=== PATIENT | female | born 1970 | race Caucasian/White ===

== ENCOUNTER → 2018-02-08 | Outpatient (CLI) | payer BC ==
[~2018-02-08] MED LIST: Androgel2.5 GM; Augmentin 500-1 EACH PO; CEPH500 PO; CHOL10002; CIPR500 PO; CLON1 PO; Cipro500 MG PO; Cytomel5 MCG PO; DHEA; DHEA PO; ESOM20 PO; Flagyl500 MG PO; HYDHCL25 PO; HYDMOR2 PO; HYDRA25 PO; LEVOTHYROXINE 175 MCG PO; LEVSOD125 PO; LIOT5; METR500 PO; MULVITMIND PO; Norco 5-325 Ta1 EACH PO; ONDA4ODT MM; OXYACE5T PO; PARO10 PO; PARO20 PO; PHENTERMINE; PRED20 PO; PROM25 PO; STRESS FORMULA PO; STRESS FORMULA1 EAC2; SULF500A PO; Synthroid100 MCG PO; Zofran Odt4 MG SL; [UNRECOGNIZED DRUG - OTHER]
[2018-02-08 13:52] LABS: BASOPHILS ABSOLUTE AUTO 0.03 K/mm3 (0.00-0.23); BASOPHILS PERCENT AUTO 0 % (0-2); EOSINOPHILS ABSOLUTE AUTO 0.21 K/mm3 (0.00-0.68); EOSINOPHILS PERCENT AUTO 2 % (0-6); Hemoglobin 12.8 g/dL (11.5-16.0); IMMATURE GRAN ABSOLUTE AUTO 0.05 K/mm3 (0.00-0.10); IMMATURE GRAN PERCENT AUTO 0 % (0-1); LYMPHOCYTES ABSOLUTE AUTO 2.14 K/mm3 (0.84-5.20); LYMPHOCYTES PERCENT AUTO 17 % (21-46); MONOCYTES ABSOLUTE AUTO 0.69 K/mm3 (0.16-1.47); MONOCYTES PERCENT AUTO 6 % (4-13); Mean Corpuscular HGB 30.5 pg (26.0-34.0); Mean Corpuscular HGB Conc 33.7 g/dL (31.5-36.5); Mean Corpuscular Volume 91 fL (80-100); Mean Platelet Volume 10.9 fL (9.1-12.4); NEUTROPHILS ABSOLUTE AUTO 9.36 K/mm3 (1.96-9.15); NEUTROPHILS PERCENT AUTO 75 % (41-73); Platelet Count 234 K/mm3 (150-400); RDW Coefficient Variation 13.2 % (11.7-14.2); RDW Standard Deviation 43.6 fL (35.1-46.3); Red Blood Cell Count 4.19 M/mm3 (3.80-5.20); White Blood Cell Count 12.48 K/mm3 (4.00-11.30)
[2018-02-08 14:11] LABS: Alanine Aminotransfer (ALT/SGP 49 U/L (12-78); Albumin, Blood 3.2 g/dL (3.4-5.0); Albumin/Globulin Ratio 0.8 (0.8-1.8); Alk Phos 98 U/L (50-136); Anion Gap 8 mmol/L (6-16); Aspartate Aminotrans (AST/SGOT 31 U/L (12-37); Bilirubin, Total 0.7 mg/dL (0.1-1.0); Blood Urea Nitrogen 9 mg/dL (8-24); Bun/Creatinine Ratio 18.9 (12.0-20.0); CO2, Blood 25 mmol/L (21-32); Calcium, Blood 8.5 mg/dL (8.5-10.1); Chloride, Blood 108 mmol/L (98-108); Creatinine, Blood 0.48 mg/dL (0.40-1.00); Glomerular Filtration Rate >60 (60-); Glucose, Blood 117 mg/dL (70-99); Potassium, Blood 3.4 mmol/L (3.5-5.5); Sodium, Blood 141 mmol/L (136-145); Total Protein, Blood 7.2 g/dL (6.4-8.2)
== END | disposition home or self-care (01) ==
LOC: LAB SHORT 13:41 → LAB 13:41
PROVIDERS: Nurse Practitioner
DX: R10.84 Generalized abdominal pain (principal)
CPT/HCPCS: 80053; 83690; 85025; 87086

== ENCOUNTER 2018-02-14 11:38 | Emergency (ER) | payer BC ==
[~2018-02-14] VITALS: Ht 167.6 cm; Wt 98.9 kg
[~2018-02-14 11:38] MED LIST changes: -Androgel2.5 GM; -Augmentin 500-1 EACH PO; -CEPH500 PO; -CHOL10002; -Cipro500 MG PO; -Cytomel5 MCG PO; -DHEA; -DHEA PO; -ESOM20 PO; -Flagyl500 MG PO; -LIOT5; -Norco 5-325 Ta1 EACH PO; -ONDA4ODT MM; -PARO10 PO; -PRED20 PO; -STRESS FORMULA PO; -STRESS FORMULA1 EAC2; -SULF500A PO; -Synthroid100 MCG PO; -Zofran Odt4 MG SL
[2018-02-14 13:42] LABS: BASOPHILS ABSOLUTE AUTO 0.04 K/mm3 (0.00-0.23); BASOPHILS PERCENT AUTO 0 % (0-2); EOSINOPHILS ABSOLUTE AUTO 0.23 K/mm3 (0.00-0.68); EOSINOPHILS PERCENT AUTO 2 % (0-6); Hematocrit 41.6 % (33.0-51.0); Hemoglobin 13.8 g/dL (11.5-16.0); IMMATURE GRAN ABSOLUTE AUTO 0.03 K/mm3 (0.00-0.10); IMMATURE GRAN PERCENT AUTO 0 % (0-1); LYMPHOCYTES PERCENT AUTO 23 % (21-46); MONOCYTES ABSOLUTE AUTO 0.67 K/mm3 (0.16-1.47); MONOCYTES PERCENT AUTO 5 % (4-13); Mean Corpuscular HGB 30.2 pg (26.0-34.0); Mean Corpuscular HGB Conc 33.2 g/dL (31.5-36.5); Mean Corpuscular Volume 91 fL (80-100); Mean Platelet Volume 9.8 fL (9.1-12.4); NEUTROPHILS ABSOLUTE AUTO 8.63 K/mm3 (1.96-9.15); NEUTROPHILS PERCENT AUTO 70 % (41-73); Platelet Count 298 K/mm3 (150-400); RDW Coefficient Variation 12.9 % (11.7-14.2); RDW Standard Deviation 42.9 fL (35.1-46.3); Red Blood Cell Count 4.57 M/mm3 (3.80-5.20)
[2018-02-14 13:59] LABS: Alanine Aminotransfer (ALT/SGP 41 U/L (12-78); Albumin, Blood 3.5 g/dL (3.4-5.0); Albumin/Globulin Ratio 0.8 (0.8-1.8); Alk Phos 106 U/L (50-136); Anion Gap 10 mmol/L (6-16); Aspartate Aminotrans (AST/SGOT 23 U/L (12-37); Bilirubin, Total 0.3 mg/dL (0.1-1.0); Blood Urea Nitrogen 12 mg/dL (8-24); Bun/Creatinine Ratio 24.4 (12.0-20.0); CO2, Blood 22 mmol/L (21-32); Calcium, Blood 8.9 mg/dL (8.5-10.1); Chloride, Blood 109 mmol/L (98-108); Creatinine, Blood 0.49 mg/dL (0.40-1.00); Globulin, Blood 4.2 g/dL (2.2-4.0); Glomerular Filtration Rate >60 (60-); Glucose, Blood 78 mg/dL (70-99); Potassium, Blood 3.3 mmol/L (3.5-5.5); Sodium, Blood 141 mmol/L (136-145); Total Protein, Blood 7.7 g/dL (6.4-8.2)
[2018-02-14] MEDS ORDERED: PARO20 PO (15:09)
[2018-02-14] MEDS ORDERED: CEPH500 PO (15:09)
[2018-02-14] MEDS ORDERED: Cipro500 MG PO (16:38)
[2018-02-14] MEDS ORDERED: ONDA4ODT MM (16:38)
[2018-02-14] MEDS ORDERED: Flagyl500 MG PO (16:38)
[2018-02-14] MEDS ORDERED: Norco 5-325 Ta1 EACH PO (16:38)
[2018-02-14 17:26] LABS: Source, Urine Clean Catch
[2018-02-14 17:31] LABS: Bilirubin, Urine Neg (Neg); Blood, Urine 1+ (Neg); Glucose Qualitative, Urine Neg (Neg); Ketones, Urine 3+ (Neg); Leukocyte Esterase, Urine Neg (Neg); Nitrite, Urine Neg (Neg); Protein, Urine 1+ (Neg); Specific Gravity, Urine 1.025 (1.003-1.022); Urobilinogen, Urine NORM (Normal)
[2018-02-14 17:41] LABS: Appearance, Urine Clear (Clear); Color, Urine Yellow (P-Yellow); Mucus Light (0-Heavy); White Blood Cells, Urine 0-2 /hpf (0-5)
[2018-02-14 17:42] LABS: Bacteria Few /hpf; Squamous Epithelial Cells Few /hpf (Few)
[2018-09-10] MEDS ORDERED: LIOT5 (09:34)
[2018-09-10] MEDS ORDERED: DHEA (09:35)
[2018-09-10] MEDS ORDERED: STRESS FORMULA1 EAC2 (09:35)
[2018-09-10] MEDS ORDERED: CHOL10002 (09:36)
[2018-09-10] MEDS ORDERED: Androgel2.5 GM (09:37)
[2018-09-15] MEDS ORDERED: ESOM20 PO (14:15)
[2018-09-16] MEDS ORDERED: Cytomel5 MCG PO (06:25)
[2018-09-16] MEDS ORDERED: DHEA PO (06:26)
[2018-09-16] MEDS ORDERED: STRESS FORMULA PO (06:28)
== END 2018-02-14 18:00 | disposition home or self-care (01) ==
LOC: ER 11:38
PROVIDERS: Emergency Medicine; Physician Assistant
DX: K57.32 Diverticulitis of large intestine without perforation or abscess without bleeding (principal); K80.20 Calculus of gallbladder without cholecystitis without obstruction; F17.210 Nicotine dependence, cigarettes, uncomplicated; Z88.1 Allergy status to other antibiotic agents; Z88.5 Allergy status to narcotic agent; Z79.899 Other long term (current) drug therapy
CPT/HCPCS: 36415; 74176; 80053; 81000; 81001; 83690; 85025; 96361; 96374; 99284; J2405; J7030

== ENCOUNTER 2018-05-22 06:18 | Emergency (ER) | payer BC ==
[~2018-05-22] VITALS: Ht 167.6 cm; Wt 95.2 kg
[~2018-05-22 06:18] MED LIST changes: +CEPH500 PO; +Cipro500 MG PO; +Flagyl500 MG PO; +Norco 5-325 Ta1 EACH PO; +ONDA4ODT MM
[2018-05-22 08:09] LABS: BASOPHILS ABSOLUTE AUTO 0.06 K/mm3 (0.00-0.23); BASOPHILS PERCENT AUTO 0 % (0-2); EOSINOPHILS ABSOLUTE AUTO 0.07 K/mm3 (0.00-0.68); EOSINOPHILS PERCENT AUTO 1 % (0-6); Hematocrit 43.9 % (33.0-51.0); Hemoglobin 14.9 g/dL (11.5-16.0); IMMATURE GRAN ABSOLUTE AUTO 0.06 K/mm3 (0.00-0.10); IMMATURE GRAN PERCENT AUTO 0 % (0-1); LYMPHOCYTES ABSOLUTE AUTO 1.31 K/mm3 (0.84-5.20); LYMPHOCYTES PERCENT AUTO 9 % (21-46); MONOCYTES ABSOLUTE AUTO 0.65 K/mm3 (0.16-1.47); MONOCYTES PERCENT AUTO 4 % (4-13); Mean Corpuscular HGB 30.6 pg (26.0-34.0); Mean Corpuscular HGB Conc 33.9 g/dL (31.5-36.5); Mean Corpuscular Volume 90 fL (80-100); Mean Platelet Volume 10.3 fL (9.1-12.4); NEUTROPHILS PERCENT AUTO 86 % (41-73); Platelet Count 262 K/mm3 (150-400); RDW Coefficient Variation 13.9 % (11.7-14.2); RDW Standard Deviation 45.9 fL (35.1-46.3); Red Blood Cell Count 4.87 M/mm3 (3.80-5.20); White Blood Cell Count 15.25 K/mm3 (4.00-11.30)
[2018-05-22 08:33] LABS: Alanine Aminotransfer (ALT/SGP 26 U/L (12-78); Albumin/Globulin Ratio 1.1 (0.8-1.8); Alk Phos 77 U/L (50-136); Anion Gap 9 mmol/L (6-16); Aspartate Aminotrans (AST/SGOT 20 U/L (12-37); Bilirubin, Total 0.6 mg/dL (0.1-1.0); Blood Urea Nitrogen 15 mg/dL (8-24); Bun/Creatinine Ratio 23.5 (12.0-20.0); CO2, Blood 22 mmol/L (21-32); Calcium, Blood 8.8 mg/dL (8.5-10.1); Chloride, Blood 110 mmol/L (98-108); Creatinine, Blood 0.64 mg/dL (0.40-1.00); Globulin, Blood 3.7 g/dL (2.2-4.0); Glomerular Filtration Rate >60 (60-); Glucose, Blood 101 mg/dL (70-99); Potassium, Blood 3.8 mmol/L (3.5-5.5); Sodium, Blood 141 mmol/L (136-145); Total Protein, Blood 7.7 g/dL (6.4-8.2)
[2018-05-22] MEDS ORDERED: Augmentin 500-1 EACH PO (08:45)
[2018-05-22] MEDS ORDERED: Synthroid100 MCG PO (08:45)
[2018-05-22] MEDS ORDERED: Zofran Odt4 MG SL (08:45)
[2018-05-22] MEDS ORDERED: Norco 5-325 Ta1 EACH PO (08:45)
[2018-05-22 08:53] LABS: Free Thyroxine 0.63 ng/dL (0.70-1.60); Thyroid Stimulating Hormone 28.3 uIU/mL (0.360-4.800); Triiodothyronine, Free 1.27 pg/mL (2.18-3.98)
== END 2018-05-22 09:00 | disposition home or self-care (01) ==
LOC: ER 06:18
PROVIDERS: Emergency Medicine
DX: A09 Infectious gastroenteritis and colitis, unspecified (principal); Z88.1 Allergy status to other antibiotic agents; Z88.5 Allergy status to narcotic agent; Z88.8 Allergy status to other drugs, medicaments and biological substances; Z79.899 Other long term (current) drug therapy; F17.210 Nicotine dependence, cigarettes, uncomplicated
CPT/HCPCS: 36415; 74176; 80053; 84439; 84443; 84481; 85025; 96374; 96375; 99284; J2405; J3010; J7030

== ENCOUNTER 2018-08-04 18:41 | Emergency (ER) | payer BC ==
[~2018-08-04] VITALS: Ht 167.6 cm; Wt 92.5 kg
[~2018-08-04 18:41] MED LIST changes: +Augmentin 500-1 EACH PO; +Synthroid100 MCG PO; +Zofran Odt4 MG SL
[2018-08-04 19:09] LABS: BASOPHILS ABSOLUTE AUTO 0.06 K/mm3 (0.00-0.23); BASOPHILS PERCENT AUTO 1 % (0-2); EOSINOPHILS ABSOLUTE AUTO 0.24 K/mm3 (0.00-0.68); EOSINOPHILS PERCENT AUTO 2 % (0-6); Hematocrit 42.7 % (33.0-51.0); Hemoglobin 14.7 g/dL (11.5-16.0); IMMATURE GRAN ABSOLUTE AUTO 0.04 K/mm3 (0.00-0.10); IMMATURE GRAN PERCENT AUTO 0 % (0-1); LYMPHOCYTES ABSOLUTE AUTO 3.17 K/mm3 (0.84-5.20); LYMPHOCYTES PERCENT AUTO 24 % (21-46); MONOCYTES ABSOLUTE AUTO 0.69 K/mm3 (0.16-1.47); MONOCYTES PERCENT AUTO 5 % (4-13); Mean Corpuscular HGB 31.3 pg (26.0-34.0); Mean Corpuscular HGB Conc 34.4 g/dL (31.5-36.5); Mean Corpuscular Volume 91 fL (80-100); Mean Platelet Volume 10.3 fL (9.1-12.4); NEUTROPHILS ABSOLUTE AUTO 9.04 K/mm3 (1.96-9.15); NEUTROPHILS PERCENT AUTO 68 % (41-73); Platelet Count 215 K/mm3 (150-400); RDW Coefficient Variation 13.2 % (11.7-14.2); White Blood Cell Count 13.24 K/mm3 (4.00-11.30)
[2018-08-04 19:26] LABS: Alanine Aminotransfer (ALT/SGP 28 U/L (12-78); Albumin, Blood 3.4 g/dL (3.4-5.0); Albumin/Globulin Ratio 0.8 (0.8-1.8); Alk Phos 81 U/L (50-136); Anion Gap 9 mmol/L (6-16); Aspartate Aminotrans (AST/SGOT 20 U/L (12-37); Bilirubin, Total 0.4 mg/dL (0.1-1.0); Blood Urea Nitrogen 10 mg/dL (8-24); Bun/Creatinine Ratio 13.3 (12.0-20.0); CO2, Blood 23 mmol/L (21-32); Calcium, Blood 9.1 mg/dL (8.5-10.1); Chloride, Blood 107 mmol/L (98-108); Creatinine, Blood 0.75 mg/dL (0.40-1.00); Glomerular Filtration Rate >60 (60-); Glucose, Blood 92 mg/dL (70-99); Potassium, Blood 3.8 mmol/L (3.5-5.5); Sodium, Blood 139 mmol/L (136-145); Total Protein, Blood 7.4 g/dL (6.4-8.2)
[2018-08-04] MEDS ORDERED: PARO10 PO (20:08)
[2018-08-04 20:59] LABS: Source, Urine Clean Catch
[2018-08-04 21:02] LABS: Bilirubin, Urine Neg (Neg); Blood, Urine 1+ (Neg); Glucose Qualitative, Urine Neg (Neg); Ketones, Urine Neg (Neg); Leukocyte Esterase, Urine Neg (Neg); Nitrite, Urine Neg (Neg); Protein, Urine Neg (Neg); Specific Gravity, Urine 1.025 (1.003-1.022); Urobilinogen, Urine NORM (Normal)
[2018-08-04 21:07] LABS: Appearance, Urine Clear (Clear); Color, Urine Yellow (P-Yellow)
[2018-08-04 21:08] LABS: White Blood Cells, Urine 0-2 /hpf (0-5)
[2018-08-04 21:09] LABS: Bacteria Few /hpf; Mucus Light (0-Heavy); Squamous Epithelial Cells Few /hpf (Few)
[2018-08-04] MEDS ORDERED: PRED20 PO (21:47)
[2018-08-04] MEDS ORDERED: SULF500A PO (21:47)
== END 2018-08-04 22:03 | disposition home or self-care (01) ==
LOC: ER 18:41
PROVIDERS: Emergency Medicine
DX: K80.20 Calculus of gallbladder without cholecystitis without obstruction (principal); R19.7 Diarrhea, unspecified; F17.210 Nicotine dependence, cigarettes, uncomplicated; Z88.1 Allergy status to other antibiotic agents; Z88.5 Allergy status to narcotic agent; Z79.899 Other long term (current) drug therapy
CPT/HCPCS: 36415; 80053; 81001; 83690; 85025; 99284

== ENCOUNTER 2020-05-10 15:11 | Emergency (ER) | payer BC ==
[~2020-05-10] VITALS: Ht 167.6 cm; Wt 93.0 kg
[~2020-05-10 15:11] MED LIST changes: +Androgel2.5 GM; +CHOL10002; +Cytomel5 MCG PO; +DHEA; +DHEA PO; +DOCU100 PO; +ESOM20 PO; +ESTRADIOL2 MG PO; +IBU800 MG PO; +LIOT5; +Milk Of Ma400 MG/5 M PO; +PARO10 PO; +PRED20 PO; +Percocet 5-3251 EACH PO; +SENN187 PO; +STRESS FORMULA PO; +STRESS FORMULA1 EAC2; +SULF500A PO
[2020-05-10 16:45] LABS: BASOPHILS ABSOLUTE AUTO 0.04 K/mm3 (0.00-0.23); BASOPHILS PERCENT AUTO 0 % (0-2); EOSINOPHILS ABSOLUTE AUTO 0.33 K/mm3 (0.00-0.68); EOSINOPHILS PERCENT AUTO 3 % (0-6); Hematocrit 45.7 % (33.0-51.0); IMMATURE GRAN ABSOLUTE AUTO 0.06 K/mm3 (0.00-0.10); IMMATURE GRAN PERCENT AUTO 1 % (0-1); LYMPHOCYTES ABSOLUTE AUTO 2.62 K/mm3 (0.84-5.20); LYMPHOCYTES PERCENT AUTO 23 % (21-46); MONOCYTES ABSOLUTE AUTO 0.65 K/mm3 (0.16-1.47); MONOCYTES PERCENT AUTO 6 % (4-13); Mean Corpuscular HGB 30.6 pg (26.0-34.0); Mean Corpuscular HGB Conc 32.8 g/dL (31.5-36.5); Mean Corpuscular Volume 93 fL (80-100); NEUTROPHILS ABSOLUTE AUTO 7.57 K/mm3 (1.96-9.15); NEUTROPHILS PERCENT AUTO 67 % (41-73); Platelet Count 263 K/mm3 (150-400); RDW Standard Deviation 44.5 fL (35.1-46.3); White Blood Cell Count 11.27 K/mm3 (4.00-11.30)
[2020-05-10 17:15] LABS: Alanine Aminotransfer (ALT/SGP 117 U/L (12-78); Albumin, Blood 3.6 g/dL (3.4-5.0); Albumin/Globulin Ratio 0.9 (0.8-1.8); Alk Phos 165 U/L (50-136); Anion Gap 7 mmol/L (6-16); Aspartate Aminotrans (AST/SGOT 42 U/L (12-37); Bilirubin, Total 0.5 mg/dL (0.1-1.0); Blood Urea Nitrogen 8 mg/dL (8-24); Bun/Creatinine Ratio 11.5 (12.0-20.0); CO2, Blood 24 mmol/L (21-32); Calcium, Blood 9.5 mg/dL (8.5-10.1); Chloride, Blood 108 mmol/L (98-108); Creatinine, Blood 0.69 mg/dL (0.40-1.00); Globulin, Blood 4.2 g/dL (2.2-4.0); Glomerular Filtration Rate >60 (60-); Glucose, Blood 164 mg/dL (70-99); Potassium, Blood 3.4 mmol/L (3.5-5.5); Sodium, Blood 139 mmol/L (136-145); Total Protein, Blood 7.8 g/dL (6.4-8.2)
[2020-05-10 19:26] LABS: Source, Urine Clean Catch
[2020-05-10 19:30] LABS: Bilirubin, Urine Neg (Neg); Blood, Urine 1+ (Neg); Glucose Qualitative, Urine Neg (Neg); Ketones, Urine 1+ (Neg); Leukocyte Esterase, Urine Neg (Neg); Nitrite, Urine Neg (Neg); Protein, Urine Neg (Neg); Specific Gravity, Urine 1.025 (1.003-1.022); Urobilinogen, Urine 1+ (Normal)
[2020-05-10 19:38] LABS: Appearance, Urine Clear (Clear); Color, Urine Yellow (P-Yellow)
[2020-05-10 19:39] LABS: Bacteria Mod /hpf; Mucus Light (0-Heavy); Red Blood Cells, Urine 0-2 /hpf (0-2); Squamous Epithelial Cells Few /hpf (Few); White Blood Cells, Urine 0-2 /hpf (0-5)
== END 2020-05-10 19:43 | disposition home or self-care (01) ==
LOC: ER 15:11
PROVIDERS: Emergency Medicine
DX: M79.89 Other specified soft tissue disorders (principal); R74.8 Abnormal levels of other serum enzymes; F17.210 Nicotine dependence, cigarettes, uncomplicated; Z90.710 Acquired absence of both cervix and uterus; Z88.1 Allergy status to other antibiotic agents; Z88.5 Allergy status to narcotic agent; Z88.8 Allergy status to other drugs, medicaments and biological substances
CPT/HCPCS: 36415; 80053; 81001; 83690; 85025; 87086; 93971; 99284-25

== ENCOUNTER 2022-05-20 15:37 | Emergency (ER) | payer BC ==
[~2022-05-20] VITALS: Ht 167.6 cm; Wt 93.0 kg
[2022-05-20 16:05] LABS: BASOPHILS ABSOLUTE AUTO 0.03 K/mm3 (0.00-0.23); BASOPHILS PERCENT AUTO 0 % (0-2); EOSINOPHILS ABSOLUTE AUTO 0.21 K/mm3 (0.00-0.68); EOSINOPHILS PERCENT AUTO 2 % (0-6); Hematocrit 39.6 % (33.0-51.0); Hemoglobin 13.8 g/dL (11.5-16.0); IMMATURE GRAN ABSOLUTE AUTO 0.02 K/mm3 (0.00-0.10); IMMATURE GRAN PERCENT AUTO 0 % (0-1); LYMPHOCYTES ABSOLUTE AUTO 2.53 K/mm3 (0.84-5.20); LYMPHOCYTES PERCENT AUTO 25 % (21-46); MONOCYTES PERCENT AUTO 6 % (4-13); Mean Corpuscular HGB 31.4 pg (26.0-34.0); Mean Corpuscular HGB Conc 34.8 g/dL (31.5-36.5); Mean Corpuscular Volume 90 fL (80-100); Mean Platelet Volume 9.9 fL (9.1-12.4); NEUTROPHILS ABSOLUTE AUTO 6.86 K/mm3 (1.96-9.15); NEUTROPHILS PERCENT AUTO 67 % (41-73); Platelet Count 225 K/mm3 (150-400); RDW Coefficient Variation 12.1 % (11.7-14.2); RDW Standard Deviation 39.7 fL (35.1-46.3); White Blood Cell Count 10.25 K/mm3 (4.00-11.30)
[2022-05-20 16:16] LABS: Source, Urine Clean Catch
[2022-05-20 16:18] LABS: Appearance, Urine Clear (Clear); Bilirubin, Urine Neg (Neg); Blood, Urine Neg (Neg); Color, Urine Yellow (P-Yellow); Glucose Qualitative, Urine Neg (Neg); Ketones, Urine Neg (Neg); Leukocyte Esterase, Urine Neg (Neg); Nitrite, Urine Neg (Neg); Protein, Urine Neg (Neg); Urobilinogen, Urine NORM (Normal)
[2022-05-20 16:25] LABS: Albumin, Blood 3.5 g/dL (3.4-5.0); Albumin/Globulin Ratio 0.9 (0.8-1.8); Bilirubin, Total 0.4 mg/dL (0.1-1.0); Bun/Creatinine Ratio 18.2 (12.0-20.0); Calcium, Blood 9.2 mg/dL (8.5-10.1); Creatinine, Blood 0.6 mg/dL (0.40-1.00); Globulin, Blood 3.7 g/dL (2.2-4.0); Potassium, Blood 3.7 mmol/L (3.5-5.5); Total Protein, Blood 7.2 g/dL (6.4-8.2)
[2022-05-20] MEDS ORDERED: Cipro500 MG PO (17:44)
[2022-05-20] MEDS ORDERED: ONDA4ODT MM (17:44)
[2022-05-20] MEDS ORDERED: Flagyl500 MG PO (17:44)
[2022-05-20] MEDS ORDERED: Roxicodone5 MG PO (17:44)
== END 2022-05-20 18:13 | disposition home or self-care (01) ==
LOC: ER 15:37
PROVIDERS: Physician Assistant
DX: K57.32 Diverticulitis of large intestine without perforation or abscess without bleeding (principal); E03.9 Hypothyroidism, unspecified; Z88.1 Allergy status to other antibiotic agents; Z88.5 Allergy status to narcotic agent; Z79.899 Other long term (current) drug therapy
CPT/HCPCS: 36415; 74177; 80053; 81003; 83690; 85025; A9270; J1885; J2405; J7030; Q9967

== ENCOUNTER 2022-06-27 13:32 | Emergency (ER) | payer OTHER ==
[~2022-06-27] VITALS: Ht 167.6 cm; Wt 91.6 kg
[~2022-06-27 13:32] MED LIST changes: +Roxicodone5 MG PO
== END 2022-06-27 15:14 | disposition home or self-care (01) ==
LOC: ER 13:32
DX: S80.02XA Contusion of left knee, initial encounter (principal); S70.02XA Contusion of left hip, initial encounter; F17.210 Nicotine dependence, cigarettes, uncomplicated; W17.89XA Other fall from one level to another, initial encounter; Z88.1 Allergy status to other antibiotic agents; Z88.5 Allergy status to narcotic agent; Z88.8 Allergy status to other drugs, medicaments and biological substances; Z79.899 Other long term (current) drug therapy
CPT/HCPCS: 73502; 73562-LT

== ENCOUNTER 2023-07-20 06:11 | Emergency (ER) | payer OTHER ==
[~2023-07-20] VITALS: Ht 167.6 cm; Wt 90.3 kg
[~2023-07-20 06:11] MED LIST changes: +AMOCLA875 PO
[2023-07-20 06:59] LABS: BASOPHILS ABSOLUTE AUTO 0.05 K/mm3 (0.00-0.23); BASOPHILS PERCENT AUTO 1 % (0-2); EOSINOPHILS ABSOLUTE AUTO 0.03 K/mm3 (0.00-0.68); EOSINOPHILS PERCENT AUTO 0 % (0-6); Hematocrit 40.5 % (33.0-51.0); Hemoglobin 14.3 g/dL (11.5-16.0); IMMATURE GRAN ABSOLUTE AUTO 0.03 K/mm3 (0.00-0.10); IMMATURE GRAN PERCENT AUTO 0 % (0-1); LYMPHOCYTES ABSOLUTE AUTO 1.79 K/mm3 (0.84-5.20); LYMPHOCYTES PERCENT AUTO 18 % (21-46); MONOCYTES ABSOLUTE AUTO 0.48 K/mm3 (0.16-1.47); MONOCYTES PERCENT AUTO 5 % (4-13); Mean Corpuscular HGB Conc 35.3 g/dL (31.5-36.5); Mean Corpuscular Volume 88 fL (80-100); Mean Platelet Volume 10.1 fL (9.1-12.4); NEUTROPHILS ABSOLUTE AUTO 7.86 K/mm3 (1.96-9.15); NEUTROPHILS PERCENT AUTO 77 % (41-73); Platelet Count 278 K/mm3 (150-400); RDW Standard Deviation 38.2 fL (35.1-46.3); Red Blood Cell Count 4.62 M/mm3 (3.80-5.20); White Blood Cell Count 10.24 K/mm3 (4.00-11.30)
[2023-07-20 07:15] VITALS: BP 184/96
[2023-07-20 07:17] LABS: Albumin, Blood 3.7 g/dL (3.4-5.0); Bilirubin, Total 0.6 mg/dL (0.1-1.0); Bun/Creatinine Ratio 23.5 (12.0-20.0); Calcium, Blood 9.3 mg/dL (8.5-10.1); Creatinine, Blood 0.6 mg/dL (0.40-1.00); Globulin, Blood 3.8 g/dL (2.2-4.0); Total Protein, Blood 7.5 g/dL (6.4-8.2)
[2023-07-20] MEDS ORDERED: AMOCLA875 PO (09:13)
[2023-07-20] MEDS ORDERED: ONDA4ODT MM (09:13)
== END 2023-07-20 09:50 | disposition home or self-care (01) ==
LOC: ER 06:11
PROVIDERS: Emergency Medicine
DX: K57.32 Diverticulitis of large intestine without perforation or abscess without bleeding (principal); K52.9 Noninfective gastroenteritis and colitis, unspecified; E03.9 Hypothyroidism, unspecified; F43.10 Post-traumatic stress disorder, unspecified; Z88.1 Allergy status to other antibiotic agents; Z88.5 Allergy status to narcotic agent; Z88.8 Allergy status to other drugs, medicaments and biological substances; Z79.899 Other long term (current) drug therapy
CPT/HCPCS: 74177; 80053; 83690; 84484; 85025; 96361; 96374-59; 96375; 99284-25; A9270; J0780; J1170; J2405; J7030; Q9967

== ENCOUNTER 2023-08-01 08:37 | Emergency (ER) | payer OTHER ==
[~2023-08-01] VITALS: Ht 167.6 cm; Wt 90.3 kg
[2023-08-01 09:43] VITALS: BP 134/100
== END 2023-08-01 12:06 | disposition home or self-care (01) ==
LOC: ER 08:37
DX: S63.502A Unspecified sprain of left wrist, initial encounter (principal); W01.198A Fall on same level from slipping, tripping and stumbling with subsequent striking against other object, initial encounter; Z88.1 Allergy status to other antibiotic agents; Z88.8 Allergy status to other drugs, medicaments and biological substances; Z88.5 Allergy status to narcotic agent; Z79.899 Other long term (current) drug therapy; E03.9 Hypothyroidism, unspecified; F43.10 Post-traumatic stress disorder, unspecified; F17.290 Nicotine dependence, other tobacco product, uncomplicated
CPT/HCPCS: 29125; 73110; 99283-25

== ENCOUNTER 2023-11-29 22:25 | Emergency (ER) | payer OTHER ==
[~2023-11-29] VITALS: Ht 167.6 cm; Wt 93.4 kg
[2023-11-29 22:45] VITALS: BP 178/109
[2023-11-29 23:20] LABS: BASOPHILS ABSOLUTE AUTO 0.07 K/mm3 (0.00-0.23); BASOPHILS PERCENT AUTO 1 % (0-2); EOSINOPHILS ABSOLUTE AUTO 0.18 K/mm3 (0.00-0.68); EOSINOPHILS PERCENT AUTO 2 % (0-6); Hematocrit 42.7 % (33.0-51.0); Hemoglobin 14.4 g/dL (11.5-16.0); IMMATURE GRAN ABSOLUTE AUTO 0.03 K/mm3 (0.00-0.10); IMMATURE GRAN PERCENT AUTO 0 % (0-1); LYMPHOCYTES ABSOLUTE AUTO 2.13 K/mm3 (0.84-5.20); LYMPHOCYTES PERCENT AUTO 23 % (21-46); MONOCYTES ABSOLUTE AUTO 0.46 K/mm3 (0.16-1.47); MONOCYTES PERCENT AUTO 5 % (4-13); Mean Corpuscular HGB 30.6 pg (26.0-34.0); Mean Corpuscular HGB Conc 33.7 g/dL (31.5-36.5); Mean Corpuscular Volume 91 fL (80-100); Mean Platelet Volume 9.9 fL (9.1-12.4); NEUTROPHILS ABSOLUTE AUTO 6.55 K/mm3 (1.96-9.15); NEUTROPHILS PERCENT AUTO 70 % (41-73); Platelet Count 247 K/mm3 (150-400); RDW Coefficient Variation 13.2 % (11.7-14.2); RDW Standard Deviation 43.8 fL (35.1-46.3); Red Blood Cell Count 4.71 M/mm3 (3.80-5.20); White Blood Cell Count 9.42 K/mm3 (4.00-11.30)
[2023-11-29 23:41] LABS: Albumin, Blood 3.8 g/dL (3.4-5.0); Bilirubin, Total 0.4 mg/dL (0.1-1.0); Bun/Creatinine Ratio 12.4 (12.0-20.0); Calcium, Blood 8.7 mg/dL (8.5-10.1); Creatinine, Blood 0.88 mg/dL (0.40-1.00); Globulin, Blood 3.8 g/dL (2.2-4.0); Potassium, Blood 3.7 mmol/L (3.5-5.5); Total Protein, Blood 7.6 g/dL (6.4-8.2)
[2023-11-30 00:22] LABS: Source, Urine Clean Catch
[2023-11-30 00:24] LABS: Bilirubin, Urine Neg (Neg); Blood, Urine Neg (Neg); Glucose Qualitative, Urine Neg (Neg); Ketones, Urine Neg (Neg); Leukocyte Esterase, Urine Neg (Neg); Nitrite, Urine Neg (Neg); Protein, Urine Neg (Neg); Urobilinogen, Urine NORM (Normal)
[2023-11-30 00:48] LABS: Appearance, Urine Clear (Clear); Color, Urine Yellow (P-Yellow)
[2023-11-30] MEDS ORDERED: METR500 PO ×2 (01:29→14:38)
[2023-11-30] MEDS ORDERED: CIPR500 PO ×2 (01:29→14:38)
[2023-11-30] MEDS ORDERED: PROM25 PO ×2 (01:29→14:38)
== END 2023-11-30 01:37 | disposition home or self-care (01) ==
LOC: ER 22:25
PROVIDERS: Physician Assistant
DX: K57.32 Diverticulitis of large intestine without perforation or abscess without bleeding (principal); Z88.1 Allergy status to other antibiotic agents; Z88.5 Allergy status to narcotic agent; Z79.899 Other long term (current) drug therapy
CPT/HCPCS: 74177; 80053; 81003; 83690; 85025; 96361; 96374; 99284-25; A9270; J2405; J7030; Q9967

== ENCOUNTER 2024-12-30 08:24 | Day surgery (SDC) | payer OTHER ==
[~2024-12-30] VITALS: Ht 167.6 cm; Wt 97.1 kg
[~2024-12-30 08:24] MED LIST changes: +Lidocaine 1%-Epineph 1:200000 30 ML SDV ONE
[2024-12-30] MEDS ORDERED: LOSARTAN POTASS25 M2 PO (09:36)
[2024-12-30] MEDS ORDERED: DULOXETINE HCL60 M1 PO (09:36)
[2024-12-30] MEDS ORDERED: OMEP20ER PO (09:37)
[2024-12-30] MEDS ORDERED: SYNTHROID137 MCG PO (09:37)
[2024-12-30] MEDS ORDERED: COMBIPATCH (09:38)
[2024-12-30] MEDS ORDERED: QUETIAPINE FUM10011 PO (09:38)
[2024-12-30] MEDS ORDERED: LINZESS145 MCG PO (09:39)
[2024-12-30] MEDS ORDERED: Lactated Ringer's 1,000 ML IV ONE (09:50)
[2024-12-30] MEDS ORDERED: CeFAZolin Sodium 2,000 MG VIAL ONE (10:00)
[2024-12-30] MEDS ORDERED: propofoL 20 ML IV ONE (10:26)
[2024-12-30] MEDS ORDERED: Midazolam HCl 1MG / ML 2ML Vial ONE (10:28)
[2024-12-30] MEDS ORDERED: FentaNYL Citrate 50 MCG/ML 2 ML Injection ONE (10:31)
[2024-12-30] MEDS ORDERED: Ondansetron HCl 2 MG / ML 2ML Vial ONE (10:51)
[2024-12-30 11:11] VITALS: BP 116/78
--- NOTE | 2024-12-30 11:46 | NUR ---
12/30/24 1146 Isela Pederson PT AMBULATED TO BATHROOM TO VOID AT THIS TIME. STEADY GAIT NOTED.
== END 2024-12-30 11:50 | disposition home or self-care (01) ==
LOC: ORSCSDS 08:24
PROVIDERS: Orthopaedic Surgery
PROC: 0JBH0ZX Excision of Left Lower Arm Subcutaneous Tissue and Fascia, Open Approach, Diagnostic (ICD-10-PCS; principal; 2024-12-30 10:15)
DX: D17.22 Benign lipomatous neoplasm of skin and subcutaneous tissue of left arm (principal); E66.9 Obesity, unspecified; Z68.34 Body mass index [BMI] 34.0-34.9, adult; E06.3 Autoimmune thyroiditis; Z79.899 Other long term (current) drug therapy
CPT/HCPCS: 88304; J0690; J2250; J2405; J2704; J3010; J7120